=== PATIENT | male | born 1950 | race Caucasian/White ===

== ENCOUNTER → 2016-04-22 | Outpatient (CLI) | payer MEDICARE, OTHER | END | disposition home or self-care (01) | LOC: LAB.O 13:22 | PROVIDERS: ATTEND Internal Medicine Cardiovascular Disease | DX: E78.5 Hyperlipidemia, unspecified (principal); I10 Essential (primary) hypertension ==

== ENCOUNTER → 2016-06-08 | Outpatient (CLI) | payer MEDICARE, OTHER | LOC: LAB.O 12:07 | PROVIDERS: ATTEND Family Medicine | DX: M70.20 Olecranon bursitis, unspecified elbow (principal) ==

== ENCOUNTER 2017-05-11 23:06 | Emergency (ER) | payer MEDICARE, OTHER ==
[2017-05-11] MEDS ORDERED: TETRACAINE HCL 0.5% OPHTH SOL 1 DROP OPHTH ONE (23:07)
[2017-05-11 23:29] VITALS: BP 149/73; TEMP 98; O2SAT 96
[2017-05-11] MEDS ORDERED: ERYTHROMYCIN OPHTH OINT 1 APPLIC ONE (23:35)
[2017-05-11] MEDS ORDERED: ERYTHROMYCIN OPHTH OINT 1 APPLIC LEFT_EYE ONE (23:35)
--- NOTE | 2017-05-11 23:38 | ED.PDOC ---
History of Present Illness - General Chief Complaint: Eye Problems Stated Complaint: left eye pain, thinks he got something in it Time Seen by Provider: 05/11/17 23:35 Source: patient, RN notes reviewed, Vital Signs reviewed Exam Limitations: no limitations - History of Present Illness Timing/Duration: 4-6 hours Severity: mild Improving Factors: nothing Worsening Factors: nothing Associated Symptoms: denies symptoms - pt felt something fall in the left eye from tree, irrigated extensively, tearing Allergies/Adverse Reactions: Allergies Penicillins Allergy (Verified 05/11/17 23:29) Home Medications: Ambulatory Orders Azithromycin 500 mg PO DAILY #7 tab 02/03/15 Gabapentin [Neurontin] 300 mg PO DAILY 02/03/15 HYDROcodone 10MG/APAP 325MG [[place] 10/325] 1 tab PO DAILY 02/03/15 Hydrochlorothiazide 12.5 mg PO DAILY #30 tab 02/03/15 Lisinopril 20 mg PO BID 02/03/15 [id number] (Otic) [Cortisporin Otic Soln] 5 drops BOTH_EARS TID #1 bttl 02/03/15 Testosterone Gel 0.75 ml DAILY 02/03/15 predniSONE 20 mg PO BID #4 tab 02/03/15 Review of Systems - Review of Systems Constitutional: States: no symptoms reported EENTM: States: eye pain, blurred vision, tearing. Denies: double vision, ear pain, ear discharge, nose pain, nose congestion Respiratory: States: no symptoms reported Cardiology: States: no symptoms reported Gastrointestinal/Abdominal: States: no symptoms reported Past Medical History (General) - Patient Medical History Hx Seizures: No Hx Stroke: Yes Hx Dementia: No Hx Asthma: No Hx of COPD: Yes Hx Cardiac Disorders: No Hx Congestive Heart Failure: No Hx Pacemaker: No Hx Hypertension: Yes Hx Thyroid Disease: No Hx Diabetes: No Hx Gastroesophageal Reflux: Yes Hx Renal Disease: No Hx Cancer: No Hx Hepatitis C: No Hx MRSA: No Surgical History: appendectomy, other - Vaccination History Hx Tetanus, Diphtheria Vaccination: No Hx Influenza Vaccination: No Hx Pneumococcal Vaccination: No - Social History Hx Tobacco Use: No Family Medical History - Family History Father Family History: No Known Physical Exam - Physical Exam General Appearance: Alert, No apparent distress, Other - left eye stain used, minimal corneal uptake, conjunctival erythema noted, anterior chamber normal to affected eye, eye lids everted and no contaminate seen, no abnormal leak with stain from globe Ears, Nose, Throat: hearing grossly normal, normal ENT inspection, normal pharynx Neck: non-tender, full range of motion, supple Respiratory: chest non-tender, lungs clear Cardiovascular/Chest: normal peripheral pulses Gastrointestinal/Abdominal: non tender, soft Comments: vision intact, visual lange intact Departure - Departure Clinical Impression: conjuntivitis Abrasion of conjunctiva, left Qualifiers: Encounter type: initial encounter Qualified Code(s): S05.02XA - Injury of conjunctiva and corneal abrasion without foreign body, left eye, initial encounter Corneal abrasion Qualifiers: Encounter type: initial encounter Laterality: left Qualified Code(s): S05.02XA - Injury of conjunctiva and corneal abrasion without foreign body, left eye, initial encounter Time of Disposition: 23:45 Disposition: Discharge to Home or Self Care Condition: Excellent Departure Forms: ED Discharge - Pt. Copy, Patient Portal Self Enrollment Instructions: DI for Eye Pain, Corneal Abrasion Diet: resume usual diet Activity: increase activity as tolerated Referrals: Guido Castro MD [Primary Care Provider] - 1-2 Weeks Home Medications: Ambulatory Orders Azithromycin 500 mg PO DAILY #7 tab 02/03/15 Gabapentin [Neurontin] 300 mg PO DAILY 02/03/15 HYDROcodone 10MG/APAP 325MG [[place] 10/325] 1 tab PO DAILY 02/03/15 Hydrochlorothiazide 12.5 mg PO DAILY #30 tab 02/03/15 Lisinopril 20 mg PO BID 02/03/15 [id number] (Otic) [Cortisporin Otic Soln] 5 drops BOTH_EARS TID #1 bttl 02/03/15 Testosterone Gel 0.75 ml DAILY 02/03/15 predniSONE 20 mg PO BID #4 tab 02/03/15 Additional Instructions: erythromycin three times daily for 7 days, return if acute change in vision, worsening of condition, edema around eye, problem, concern
== END 2017-05-11 23:49 | disposition home or self-care (01) ==
LOC: ER 23:06
DX: S05.02XA Injury of conjunctiva and corneal abrasion without foreign body, left eye, initial encounter (principal); J44.9 Chronic obstructive pulmonary disease, unspecified; I10 Essential (primary) hypertension; X58.XXXA Exposure to other specified factors, initial encounter

== ENCOUNTER → 2018-04-26 | Outpatient (CLI) | payer MEDICARE, OTHER | LOC: LAB.O 11:09 | PROVIDERS: ATTEND Internal Medicine Cardiovascular Disease | DX: E78.2 Mixed hyperlipidemia (principal) ==

== ENCOUNTER → 2018-10-27 | Outpatient (CLI) | payer MEDICARE, OTHER | LOC: MRI 14:00 | PROVIDERS: ATTEND General Practice | DX: M54.16 Radiculopathy, lumbar region (principal); M48.062 Spinal stenosis, lumbar region with neurogenic claudication; M48.07 Spinal stenosis, lumbosacral region; M43.16 Spondylolisthesis, lumbar region; Z98.1 Arthrodesis status ==

== ENCOUNTER → 2018-11-17 | Outpatient (CLI) | payer MEDICARE, OTHER ==
--- NOTE | 2018-11-18 14:20 | MRI ---
EXAM DESCRIPTION: Thoracic Spine w/o Contrast: Magnetic Resonance Imaging. CLINICAL HISTORY: CHRONIC BACK PAIN. Mid back. COMPARISON: Lumbar spine without contrast September 2018. TECHNIQUE: Multiplanar, multiple standard sequences, non contrast MRI, thoracic spine. FINDINGS: Disc desiccation T6-T7 with anterior disc space loss anterior moderate endplate reactive changes bulging disc and endplate ridging. Posterior left paracentral 5 mm disc bulge abutting the cord and the left C6 nerve root. Right facet arthrosis and mild narrowing of the foramen. T7-T8 diffuse advanced disc space loss and desiccation. Diffuse signal spondylosis involving most of the vertebral bodies. Could also represent early compression injury. Normal signal in the bilateral pedicles. Disc remnant bulging to the left of midline abutting the cord and the left C7 nerve. Left side disc spur complex encroaching on the foramen which is almost stenotic. Also hypertrophic arthrosis of the left facet. Mild narrowing right facet. T8-T9: Disc desiccation and minimal disc space loss. Bilobar protrusion of the disc right paracentral but more left paracentral encroaching on the right anterior and left anterior extradural space but not the cord. Canal nearly stenotic. Bilateral facet arthrosis. Bilateral moderate foraminal narrowing. Minimal desiccation and posterior bulging of the T9-T10 disc but no canal or foraminal stenosis. Moderate narrowing left foramen. Minimal desiccation and posterior bulging of the T12-L1 disc with no canal or foraminal stenosis. Desiccation and disc space loss T4-T5 with minimal posterior bulging minimal canal and foraminal narrowing. Similar appearance of the disc and disc space at T3-T4. Remaining discs demonstrate normal signal. Disc spaces are preserved. Canal and foramina are patent. No scoliosis. Facet joints are unremarkable. Conus terminates below the inferior images of the study. Cord with normal signal, no compression. Paravertebral soft tissues are unremarkable. Intermittent circumscribed hyperintense T1 and T2 objects in the vertebral bodies and pedicles consistent with hemangiomas. Otherwise normal marrow signal in the remaining vertebral bodies and the posterior elements. Vertebral bodies are not compressed at any level. IMPRESSION: 1. Multiple discs with desiccation and bulging. Left paracentral T6-T7 disc bulge abutting the cord and the left C6 nerve root. 2. Diffuse spondylosis of the endplates appears acute with signal similar to marrow edema involving most of the T7 and T8 vertebral bodies. The disc and disc space are not hyperintense T2 or inversion recovery signal, so not conclusive for discitis at this time. No edema signal in the pedicles at both levels. Disc bulge into the left of midline abutting the intradural space and left T7 nerve. Near stenosis of the left foramen. Correlate with clinical findings. Consider laboratory CRP and ESR tests. 3. Bilobed protrusion of the T8-T9 disc posteriorly and more to the left than the right encroaching on the extradural space but not the cord. Canal nearly stenotic. I lateral moderate foraminal narrowing. Electronically signed by: Nagi Sherwood MD 11/18/2018 2:19 PM CDT
== END ==
LOC: MRI 13:30
PROVIDERS: ATTEND General Practice
DX: M51.37 Other intervertebral disc degeneration, lumbosacral region (principal); M47.894 Other spondylosis, thoracic region; M51.84 Other intervertebral disc disorders, thoracic region; M51.24 Other intervertebral disc displacement, thoracic region

== ENCOUNTER → 2019-07-13 | Outpatient (CLI) | payer MEDICARE, OTHER | LOC: LAB.O 11:38 | PROVIDERS: ATTEND Internal Medicine Cardiovascular Disease | DX: I50.32 Chronic diastolic (congestive) heart failure (principal) ==

== ENCOUNTER → 2020-01-22 | Outpatient (CLI) | payer MEDICARE, OTHER | LOC: LAB.O 11:32 | PROVIDERS: ATTEND Internal Medicine Cardiovascular Disease | DX: I50.32 Chronic diastolic (congestive) heart failure (principal); E78.2 Mixed hyperlipidemia ==